=== PATIENT | male | born 1975 | race Caucasian/White ===

== ENCOUNTER 2019-10-26 01:01 | Inpatient (IN) | payer OTHER ==
[2019-10-26] MEDS ORDERED: MORPHINE SULFATE 4 MG/ML SYRINGE IV PRN (01:33)
[2019-10-26] MEDS ORDERED: NALOXONE 0.4 MG/ML 1 ML VIAL IV PRN (01:33)
[2019-10-26] MEDS ORDERED: ONDANSETRON 4 MG/2 ML VIAL IVP PRN (01:33)
--- NOTE | 2019-10-26 01:53 | ED ---
General Adult HPI - General Chief complaint: Recheck/Abnormal Lab/Rx Stated complaint: Biliary Blockage Time Seen by Provider: 10/26/19 01:20 Source: patient, EMS Mode of arrival: EMS Limitations: no limitations - History of Present Illness Initial comments: this patient is a 44-year-old man who presents as a transfer from [facility]. The patient had gone there to be evaluated because his children had noticed that he appeared to be turning yellow. Patient states that he may have noticed some subtle change going on for days or maybe up to weeks. The patient is denying significant abdominal pain. He states he has had some intermittent nausea and vomiting going on throughout the past month. He also states that over the past days to weeks his urine has become darker. The patient's stools are a bit personal driver. at the outside hospital, patient was noted to have bilirubin greater than 20. Mild elevations of AST, ALT, amylase lipase. CT of the abdomen pelvis was performed which reportedly showed common bile duct stone, dilated bile duct and dilated gallbladder. The patient was given 1 dose of Zosyn and transferred here. here the patient is denying significant abdominal pain. At the moment no nausea and vomiting. -: days(s) Location: abdomen - Related Data Allergies Allergy/AdvReac Type Severity Reaction Status Date / Time No Known Allergies Allergy Verified 10/26/19 01:10 Review of Systems ROS Statement: Those systems with pertinent positive or pertinent negative responses have been documented in the HPI. ROS Other: All systems not noted in ROS Statement are negative. Constitutional: Denies: fever, chills Respiratory: Denies: cough, dyspnea Cardiovascular: Denies: chest pain, palpitations, edema Gastrointestinal: Reports: as per HPI, abdominal pain, nausea, vomiting. Denies: diarrhea, constipation, melena, hematochezia Genitourinary: Reports: other (dark urine). Denies: dysuria, hematuria Musculoskeletal: Denies: back pain Skin: Denies: rash Neurological: Denies: headache, weakness Past Medical History Past Medical History: No Reported History History of Any Multi-Drug Resistant Organisms: None Reported Past Surgical History: No Surgical Hx Reported Past Psychological History: No Psychological Hx Reported Smoking Status: Current every day smoker Past Alcohol Use History: Daily Past Drug Use History: Marijuana General Exam Limitations: no limitations General appearance: alert, in no apparent distress Head exam: Present: atraumatic, normocephalic Eye exam: Present: PERRL, EOMI, scleral icterus. Absent: conjunctival injection, nystagmus ENT exam: Present: normal oropharynx Respiratory exam: Present: normal lung sounds bilaterally. Absent: respiratory distress, wheezes, rales, rhonchi, stridor Cardiovascular Exam: Present: regular rate, normal rhythm, normal heart sounds. Absent: systolic murmur, diastolic murmur, rubs, gallop GI/Abdominal exam: Present: soft. Absent: distended, tenderness, guarding, rebound, rigid, mass, pulsatile mass, hernia Extremities exam: Present: normal inspection, normal capillary refill. Absent: pedal edema, calf tenderness Back exam: Present: normal inspection. Absent: CVA tenderness (R), CVA tenderness (L) Neurological exam: Present: alert Skin exam: Present: warm, dry, intact, other (jaundice). Absent: rash Course Vital Signs 10/26/19 01:02 Temperature 98.1 F Pulse Rate 79 Respiratory 18 Rate Blood Pressure 143/87 O2 Sat by Pulse 98 Oximetry Disposition Clinical Impression: Common bile duct stone, Jaundice Disposition: ADMITTED IP TO THIS HOSP Condition: Fair Is patient prescribed a controlled substance at d/c from ED?: No Referrals: None,Stated [Primary Care Provider] - 1-2 days
[2019-10-26] MEDS: FAMOTIDINE 20 MG/2 ML VIAL IV SCH ×2 (02:01→13:35)
[2019-10-26] MEDS: PIPERACILLIN-TAZOBACTAM 3.375 GM in SODIUM CHLORIDE 0.9% 100 ML IVPB SCH ×3 (02:03→18:20)
[2019-10-26] MEDS: SODIUM CHLORIDE 0.9% 1,000 ML IV SCH ×4 (02:03→23:17)
--- NOTE | 2019-10-26 08:42 | P.HPIM ---
History of Present Illness this is a pleasant 44 years old male with no significant past medical history. who presents to [facility] for worsening yellowish discolorations of the arteries and scans over 6 weeks.with occasional nausea and vomiting, no abdominal pain, no change in bowel movement other than being felt. No other complaints like no chest pain or dyspnea.patient has no PCP and he does not follow up with one He smokes about half pack per day And he drinks about six packs of Beer every 2- 3 days and uses marijuana times. patient was transferred from [facility]. He has CT of the abdomen and pelvis with IV contrast showing gallbladder moderately dilated to 4.3 cm, dilatation of the extrahepatic bile ducts, common bile duct measures 12 mm., No pancreatic mass. WBC is 9.0, hemoglobin 14, platelets 289. Electrolytes normal, creatinine normal 0.8, liver enzymes elevated AST 229 and ALT 416. Total bilirubin is elevated at 20.1. Ammonia is negative at 19. Review of Systems CONSTITUTIONAL: No fever, no malaise, no fatigue. HEENT: No recent visual problems or hearing problems. Denied any sore throat. CARDIOVASCULAR: No orthopnea, PND, no palpitations, no syncope. PULMONARY: No shortness of breath, no cough, no hemoptysis. GASTROINTESTINAL: No diarrhea, no nausea, no vomiting, no abdominal pain. Normoactive bowel sounds. NEUROLOGICAL: No headaches, no weakness, no numbness. HEMATOLOGICAL: Denies any bleeding or petechiae. GENITOURINARY: Denies any burning micturition, frequency, or urgency. MUSCULOSKELETAL/RHEUMATOLOGICAL: Denies any joint pain, swelling, or any muscle pain. ENDOCRINE: Denies any polyuria or polydipsia. Past Medical History Past Medical History: No Reported History History of Any Multi-Drug Resistant Organisms: None Reported Past Surgical History: No Surgical Hx Reported Past Anesthesia/Blood Transfusion Reactions: Unable to Obtain Additional Past Anesthesia/Blood Transfusion Reaction / Comment(s): pt. has never had surgery Past Psychological History: No Psychological Hx Reported Smoking Status: Current every day smoker Past Alcohol Use History: Occasional Additional Past Alcohol Use History / Comment(s): pt. states he has been smoking for 25 years but has cut back and now only smokes 1/2 a pack a day, pt. states he drinks a 6 pack of beer every 3 days Past Drug Use History: Marijuana Additional Drug Use History / Comment(s): pt. occassionally smokes marijuana Medications and Allergies Home Medications Medication Instructions Recorded Confirmed Type No Known Home Medications 10/26/19 10/26/19 History Allergies Allergy/AdvReac Type Severity Reaction Status Date / Time No Known Allergies Allergy Verified 10/26/19 07:55 Physical Exam Vitals: Vital Signs Temp Pulse Pulse Resp BP BP Pulse Ox 10/26/19 05:02 97.9 F 82 18 133/80 97 10/26/19 02:30 98 F 79 18 157/90 97 10/26/19 02:05 66 82 18 141/88 100 10/26/19 01:02 98.1 F 79 18 143/87 98 Intake and Output 10/25/19 10/26/19 10/26/19 22:59 06:59 14:59 Other: Voiding Method Toilet # Voids 1 Weight 86.183 kg GENERAL: The patient is alert and oriented x3, not in any acute distress. Well developed, well nourished. -HEENT: Pupils are round and equally reacting to light. EOMI. positive for scleral icterus. No conjunctival pallor. Normocephalic, atraumatic. No pharyngeal erythema. No thyromegaly. CARDIOVASCULAR: S1 and S2 present. No murmurs, rubs, or gallops. PULMONARY: Chest is clear to auscultation, no wheezing or crackles. ABDOMEN: Soft, nontender, nondistended, normoactive bowel sounds. No palpable organomegaly. MUSCULOSKELETAL: No joint swelling or deformity. EXTREMITIES: No cyanosis, clubbing, or pedal edema. NEUROLOGICAL: Gross neurological examination did not reveal any focal deficits. SKIN: No rashes. No petechiae Thrombosis Risk Factor Assmnt - Choose All That Apply Any of the Below Risk Factors Present?: Yes Each Factor Represents 1 point: Age 41-60 years, Obesity (BMI >25) Other Risk Factors: No Other congenital or acquired thrombophilia - If yes, enter type in comment: No Thrombosis Risk Factor Assessment Total Risk Factor Score: 2 Thrombosis Risk Factor Assessment Level: Low Risk Assessment and Plan Assessment: biliary obstructions with dilated common bile duct Elevated liver enzymes and bilirubin, with obstructive jaundice nicotine dependence Substance abuse with marijuana Alcoholic daily drinking at-risk of alcohol withdrawal Plan: this is a pleasant 44 years old male who presents with obstructive jaundice, common bile duct is dilated. Consult GI service for possible MRCP. Continue with nicotine patch, CIWA protocol, vitamins Labs and medication were reviewed.. Continue same treatment. Continue with symptomatic treatment. Resume home medication. Monitor lytes and vitals. DVT and GI prophylaxis. Further recommendations of the clinical course of the patient DVT prophylaxis: Subcutaneous heparin GI Prophylaxis: Pepcid PT/OT: Pending Prognosis is guarded
[2019-10-26] MEDS ORDERED: LORazepam 2 MG/ML INJ IV PRN ×3 (08:44)
[2019-10-26 11:02] LABS: ALT 377 U/L (4-49); AST 207 U/L (17-59); African American GFR (CKD) >90 (>60 ml/min/1.73 sqM); Albumin 4.1 g/dL (3.5-5.0); Alkaline Phosphatase 602 U/L (38-126); Amylase 90 U/L (30-110); Anion Gap 12 mmol/L; Blood Urea Nitrogen 9 mg/dL (9-20); Calcium 9.5 mg/dL (8.4-10.2); Carbon Dioxide 23 mmol/L (22-30); Chloride 103 mmol/L (98-107); Glucose 107 mg/dL (74-99); Non-African American GFR(CKD) >90 (>60 ml/min/1.73 sqM); Potassium 4.2 mmol/L (3.5-5.1); Sodium 138 mmol/L (137-145); Total Protein 7.3 g/dL (6.3-8.2)
[2019-10-26 11:08] LABS: Basophils # (A) 0.1 k/uL (0-0.2); Basophils % (A) 1 %; Eosinophils # (A) 0.2 k/uL (0-0.7); Eosinophils % (A) 3 %; HCT 40.7 % (39.0-53.0); HGB 13.6 gm/dL (13.0-17.5); Lymphocytes % (A) 24 %; MCH 32.3 pg (25.0-35.0); MCHC 33.3 g/dL (31.0-37.0); Monocytes # (A) 0.5 k/uL (0-1.0); Monocytes % (A) 6 %; Neutrophils # (A) 5.2 k/uL (1.3-7.7); Neutrophils % (A) 65 %; Platelet Count 308 k/uL (150-450); RDW 15.5 % (11.5-15.5); WBC 8.1 k/uL (3.8-10.6)
[2019-10-26 11:21] LABS: Total Bilirubin 19.1 mg/dL (0.2-1.3)
[2019-10-26] MEDS: THIAMINE 100 MG TAB PO SCH ×2 (11:24→16:45)
[2019-10-26 11:46] LABS: Prothrombin Time 10.6 sec (9.0-12.0)
[2019-10-26] MEDS ORDERED: INDOMETHACIN 50MG SUPPOSITORY RECTAL ONE (13:30)
[2019-10-26] MEDS ORDERED: PROPOFOL 10 MG/ML 20 ML VIAL IV ONE (14:32)
[2019-10-26] MEDS ORDERED: fentaNYL (PF) 50 MCG/ML 2 ML AMP ONE (14:32)
[2019-10-26] MEDS ORDERED: MIDAZOLAM 2 MG/2 ML VIAL ONE (14:32)
[2019-10-26] MEDS ORDERED: GLUCAGON 1 MG/ML VIAL ONE (14:32)
[2019-10-26] MEDS ORDERED: IV FLUID CONTINUATION 900 ML IV ONE (14:41)
[2019-10-26] MEDS ORDERED: IOPAMIDOL-300 50ML BTL MISCELLANE ONE (15:39)
--- NOTE | 2019-10-26 15:48 | P.PCN ---
Date of Procedure: 10/26/19 Procedure(s) Performed: Brief history: Patient is a 44-year-old white male scheduled for an ERCP as part of evaluation of the pain was jaundice for the last 6 weeks duration. His labs showed a bilirubin of 20 and elevated phosphorus of 655. Mild elevation of AST and AST. CT of abdomen showed dilated common bile duct but no pancreatic mass. Normal gallstones were noted. The cardia was distended. He denies any abdominal pain. Procedure performed: ERCP Preoperative diagnoses: Obstructive jaundice IV sedation per anesthesia: Procedure: After informed consent was obtained from the patient and after the risks benefits and complications including bleeding perforation and pancreatitis explained in detail the patient was brought into the endoscopy unit. The patient was placed in prone position and IV conscious sedation was administered by anesthesia under continuous monitoring. The Olympus side-viewing duodenoscope was then inserted into the mouth and esophagus intubated without any difficulty. The scope was gradually advanced into the stomach and duodenum. The major papilla was identified without any difficulty. Despite multiple attempts I could not cannulate the common bile duct or the pancreatic duct using the tapered-tip catheter. At this time an autotome with the guidewire technique was used and was able to 10 the pancreatic duct which appeared slightly irregular but no obvious dilation noted. Following this despite multiple attempts using the guidewire technique I was not able to contact cannulate the common bile duct. Hence the procedure was terminated. Patient tolerated the procedure well. Impression: 1, Slight irregularity of the pancreatic duct in the head of the pancreas but no obvious strictures identified 2. Unsuccessful cannulation of the common bile duct Recommendations: The findings of this examination were discussed with the patient . A findings of examination were discussed with Dr. Tyler. We'll transfer him to [address] [place] [address] for further management.
--- NOTE | 2019-10-26 16:38 | P.EN ---
I discussed the case with Dr. Milligan the cloth examiner this afternoon, patient had Unsuccessful cannulation of the common bile ductdespite several attempts. Patient is aware of this. Dr. Milligan recommended transfer the patient to a tertiary care center like [facility]. I came and discussed with the patient however he was concerned about his kids as he has 3 kids of 18, 16 and 11 years old and he does not want to leave them in go to her in [facility] which is about 2 hours away from him. Patient was taken off leaving AMA. Risks and benefits and alternatives are explained for him including but not limited to the risk of worsening liver function, liver failure, worsening jaundice, organ dysfunction, and/or , patient verbalized understanding however is still thinking about it however he does not give consent to be transferred to [facility].patient states that he has no family friends to help him Based upon my evaluation patient has capacity to make medical decision
--- NOTE | 2019-10-26 16:40 | FL ---
Fluoroscopy HISTORY: Common bile duct obstruction, jaundice 3.41 minutes fluoroscopy time supplied to the referring clinician. 2 intraoperative C-arm images doc ument the procedure. See dictated report from gastroenterology.
--- NOTE | 2019-10-26 16:56 | CONS ---
CONSULTATION DATE OF DICTATION: 10/26/2019 REASON FOR CONSULTATION: Obstructive jaundice. HISTORY OF PRESENT ILLNESS: The patient is a 44-year-old white male with history of moderate alcohol abuse. He was admitted to the hospital because of yellowish discoloration of his skin and sclerae for the last 6 weeks' duration. He does complain of some nausea but no emesis. No abdominal pain. No recent change in bowel habits. He denies any recent weight loss. He usually drinks about 6 of beer 3 times a week. He denies any prior history of jaundice or hepatitis. At [facility] he was noted to have bilirubin up to 20 with ALT and AST at 229 and 416, respectively. Alkaline phosphatase was 602. He had a CT of the abdomen and pelvis done that showed dilated common bile duct all the way to the head of the pancreas, but no obvious pancreatic mass seen. Also there was a moderately distended gallbladder noted. In view of this, we are consulted for possible ERCP. PAST MEDICAL HISTORY: None. PAST SURGICAL HISTORY: None. MEDICATIONS AT HOME: None. ALLERGIES: NO KNOWN DRUG ALLERGIES. SOCIAL HISTORY: Chronic smoker. Alcohol use as mentioned above. FAMILY HISTORY: Unremarkable. REVIEW OF SYSTEMS: CARDIOPULMONARY: No chest pain or shortness of breath. GENITOURINARY: No dysuria or hematuria. MUSCULOSKELETAL: Unremarkable. SKIN: Unremarkable. ENDOCRINE: Unremarkable. PSYCHIATRIC: Unremarkable. NEUROLOGY: Unremarkable. ENT/VISION: Unremarkable. CONSTITUTIONAL: No recent weight loss. No fever, chills, night sweats. PHYSICAL EXAMINATION: He appears comfortable. No apparent distress. VITAL SIGNS: Stable. Blood pressure 132/86, pulse rate 84 and afebrile. HEENT examination unremarkable. Conjunctivae pink. Sclerae deeply icteric. Oral cavity no lesions. NECK: No JVD or lymph node enlargement. CHEST: Clear to auscultation. HEART: Regular rate and rhythm. ABDOMEN: Soft. Non-tender. Non-distended. Liver and spleen were not palpable. Bowel sounds are positive. No organomegaly. EXTREMITIES: No pedal edema. SKIN: No rashes. NEUROLOGIC: He is alert and oriented x3. No focal deficits. LABS: Labs from today show WBC 8.1, hemoglobin 13.6, platelets normal. Basic metabolic showed a T-bilirubin of 19.1, AST 207, ALT 377, alkaline phosphatase of 602. Lipase was 1224. IMPRESSION: 1. This is a patient who presents with painless jaundice for the last 6 weeks' duration. He is noted to have mild elevation of serum transaminases and bilirubin is up to 19.1 with an alkaline phosphatase of 602. He also has mild elevation of lipase. Clinically asymptomatic. No recent weight loss. CT of the abdomen showed dilated common bile duct all the way to the head of the pancreas, but no obvious pancreatic mass is seen. Possibility of neoplasm versus CBD stone versus a benign CBD stricture needs to be considered. 2. History of moderate alcohol use. RECOMMENDATIONS: Will proceed with an ERCP today. Discussed with the patient risks, benefits and complications of the procedure and he is agreeable to it. Thank you for this consultation. JOSHL / IJN: [id number] /
[2019-10-26 20:52] VITALS: BP 138/81; PULSE 65; RESP 16; TEMP 97.7
--- NOTE | 2019-10-26 22:07 | P.DS ---
Providers Date of admission: 10/26/19 01:34 Attending physician: Julio Brady MD Consults: 10/26/19 01:35 Consult Physician Urgent Consulting Provider: Fereman Rodriguez Consult Reason/Comments: Common and bile duct stone. Jaundice Do you want consulting provider notified?: Yes Primary care physician: Stated None Hospital Course: PLEASE REFER TO H&P FOR MORE DETAIL pt had ERCP today with failed attempt to access the common bile duct , so bowling alley mechanic recommended to transfer pt to [facility] , pt first was reluctant to go because he wanted to care for his three kids at home but melo ntually he accepted to be transfered to [facility] , i called [facility] transfer taem who connected me to the physician international freight forwarder , and we discussed the case together and they kindly accpeted the pt under their service pt is informed and he agree to proceed with the transfer process, he is aware he is going to [facility] in [place] please refer to H&P from today for more details. Patient Condition at Discharge: Fair Plan - Discharge Summary Discharge Rx Participant: No New Discharge Prescriptions: No Action No Known Home Medications Discharge Medication List No Known Home Medications 10/26/19 [History] Follow up Appointment(s)/Referral(s): Gaudencio Will MD [REFERRING] - 10 Days (new patient to 's office ,they request patient call and schedule own appt.) Renee Milligan MD [STAFF PHYSICIAN] - 2 Weeks (office does not take patient insurance will have to follow up with primary)
[2019-10-27] MEDS: PIPERACILLIN-TAZOBACTAM 3.375 GM in SODIUM CHLORIDE 0.9% 100 ML IVPB SCH (01:58)
[2019-10-27] MEDS: FAMOTIDINE 20 MG/2 ML VIAL IV SCH (02:01)
== END 2019-10-27 03:34 | disposition short-term general hospital (02) | DRG 445 ==
LOC: EC 01:01 → 3NMEDONC 01:34
PROVIDERS: ADMIT Internal Medicine; ATTEND Internal Medicine
PROC: 0DJ08ZZ Inspection of Upper Intestinal Tract, Via Natural or Artificial Opening Endoscopic (ICD-10-PCS; principal; 2019-10-26 08:00)
DX: K82.8 Other specified diseases of gallbladder (principal); K80.51 Calculus of bile duct without cholangitis or cholecystitis with obstruction; R74.8 Abnormal levels of other serum enzymes; F10.10 Alcohol abuse, uncomplicated; F17.210 Nicotine dependence, cigarettes, uncomplicated; Z71.6 Tobacco abuse counseling
CPT/HCPCS: 43260; 74330; 80053; 82150; 83690; 85025; 85610; 96374; 99284